=== PATIENT | female | born 1970 | race Two or more races ===

== ENCOUNTER → 2016-05-10 | Outpatient (REF) | payer OTHER ==
[~2016-05-10] MED LIST: ACET50TA PO; COLA100C PO; IBUP-1114 PO; IRON18TA PO; PRENTAB9 PO
[2016-05-10 11:53] LABS: MEAN CORPUSCULAR HEMOGLOBIN 30.2 pg (27.0-33.0); MEAN CORPUSCULAR HGB CONC 33.5 g/dl (32.0-36.5); MEAN CORPUSCULAR VOLUME 90.2 fl (80.0-96.0); RED CELL DISTRIBUTION WIDTH 12.4 % (11.5-14.5); WHITE BLOOD COUNT 5.1 K/mm3 (4.0-10.0)
[2016-05-10 12:13] LABS: ALBUMIN 4.2 GM/DL (3.2-5.2); ALKALINE PHOSPHATASE 83 U/L (45-117); ALT/SGPT 45 U/L (12-78); ANION GAP 9 MEQ/L (8-16); AST/SGOT 27 U/L (15-37); BILIRUBIN,TOTAL 0.3 MG/DL (0.2-1.0); BLOOD UREA NITROGEN 12 MG/DL (7-18); CALCIUM LEVEL 8.9 MG/DL (8.5-10.1); CARBON DIOXIDE LEVEL 27 MEQ/L (21-32); CHLORIDE LEVEL 103 MEQ/L (98-107); CREATININE FOR GFR 0.83 MG/DL (0.55-1.02); FERRITIN 18 NG/ML (8-252); GLOMERULAR FILTRATION RATE > 60.0 (>58); GLUCOSE, FASTING 91 MG/DL (70-105); POTASSIUM SERUM 4.7 MEQ/L (3.5-5.1); SODIUM LEVEL 139 MEQ/L (136-145); TOTAL PROTEIN 7.2 GM/DL (6.4-8.2)
== END ==
LOC: M SFHCLERA 08:26
PROVIDERS: ATTEND Family Medicine
DX: Z83.49 Family history of other endocrine, nutritional and metabolic diseases (principal); R53.83 Other fatigue
CPT/HCPCS: 80053; 82728; 83540; 84439; 84443; 85027; G0463

== ENCOUNTER → 2016-06-20 | Outpatient (CLI) | payer OTHER ==
[~2016-06-20] MED LIST changes: -COLA100C PO; +COLA100C3 PO
--- NOTE | 2016-06-21 09:26 | REPMRS ---
Patient History The patient states she had a clinical breast exam in October 2015.Patient had first child at age 32. No known family history of cancer. Digital Mammo Screening Bilat: June 20, 2016 - Exam #: [id number] Bilateral CC and MLO view(s) were taken. Technologist: Tanja Samuels, Technologist No prior studies available for comparison. FINDINGS: The breast tissue is heterogeneously dense. This may lower the sensitivity of mammography. There is no evidence of cancer on this mammogram. ASSESSMENT: BI-RADS/ACR category 2 mammogram. Benign finding(s). Recommendation Routine screening mammogram of both breasts in 1 year (for women over age 40). This mammogram was interpreted with the aid of an FDA-approved computer-aided dectection system. Electronically Signed By: Francisco Bui MD 06/21/16 0931
== END ==
LOC: M RAD 16:13
PROVIDERS: ATTEND Family Medicine
DX: Z12.31 Encounter for screening mammogram for malignant neoplasm of breast (principal); R92.8 Other abnormal and inconclusive findings on diagnostic imaging of breast

== ENCOUNTER → 2016-07-05 | Outpatient (REF) | payer OTHER | LOC: M SFHCLERA 07:54 | PROVIDERS: ATTEND Family Medicine | DX: Z83.49 Family history of other endocrine, nutritional and metabolic diseases (principal) | CPT/HCPCS: 84481; G0463 ==

== ENCOUNTER → 2017-03-23 | Outpatient (REF) | payer OTHER ==
[2017-03-23 12:12] LABS: HEMATOCRIT 45.2 % (36.0-47.0); HEMOGLOBIN 14.8 g/dl (12.0-16.0); MEAN CORPUSCULAR HEMOGLOBIN 29.2 pg (27.0-33.0); MEAN CORPUSCULAR HGB CONC 32.7 g/dl (32.0-36.5); MEAN CORPUSCULAR VOLUME 89.2 fl (80.0-96.0); PLATELET COUNT, AUTOMATED 291 10^3/uL (150-450); RED BLOOD COUNT 5.07 10^6/uL (4.00-5.40); RED CELL DISTRIBUTION WIDTH 12.9 % (11.5-14.5); WHITE BLOOD COUNT 6.3 10^3/uL (4.0-10.0)
[2017-03-23 12:46] LABS: VITAMIN B12 LEVEL 1546 PG/ML (247-911)
[2017-03-23 13:03] LABS: ANION GAP 8 MEQ/L (8-16); BLOOD UREA NITROGEN 13 MG/DL (7-18); CALCIUM LEVEL 9.5 MG/DL (8.5-10.1); CARBON DIOXIDE LEVEL 31 MEQ/L (21-32); CHLORIDE LEVEL 100 MEQ/L (98-107); CREATININE FOR GFR 0.78 MG/DL (0.55-1.30); FERRITIN 10 NG/ML (8-252); FREE T4 0.84 NG/DL (0.76-1.46); GLOMERULAR FILTRATION RATE > 60.0 (>58); GLUCOSE, FASTING 89 MG/DL (70-100); IRON (FE) 82 UG/DL (50-170); PERCENT SATURATION 18.1 % (13.2-45.0); POTASSIUM SERUM 4.6 MEQ/L (3.5-5.1); SODIUM LEVEL 139 MEQ/L (136-145); TOTAL IRON BINDING CAPACITY 453 UG/DL (250-450)
== END ==
LOC: M SFHCLERA 09:24
DX: R53.83 Other fatigue (principal)
CPT/HCPCS: 83550

== ENCOUNTER → 2017-05-30 | Outpatient (CLI) | payer OTHER | LOC: M LRY 10:46 | DX: R05 Cough (principal); R91.8 Other nonspecific abnormal finding of lung field | CPT/HCPCS: 94640 ==

== ENCOUNTER → 2018-02-26 | Outpatient (CLI) | payer OTHER ==
[~2018-02-26] MED LIST changes: -ACET50TA PO; -COLA100C3 PO; +COLA100C5 PO; +MAPA500T2 PO
--- NOTE | 2018-02-26 18:40 | REPMRS ---
Patient History The patient states she has not had a clinical breast exam in over a year. No known family history of cancer. 2D ONLY Digital Mammo Screening Bilat: February 26, 2018 - Exam #: [id number] Bilateral CC and MLO view(s) were taken. Technologist: Tanja Samuels, Technologist Prior study comparison: June 20, 2016, bilateral digital mammo screening bilat performed at [facility]. April 16, 2013, bilateral digital woman screen mammo, performed at [facility]. November 12, 2010, bilateral digital woman screen mammo, performed at [facility]. FINDINGS: The breast tissue is heterogeneously dense. This may lower the sensitivity of mammography. There is a moderate amount of heterogeneously dense fibroglandular tissue which is fairly symmetric. There is no interval development of dominant mass, architectural distortion, or clustered microcalcification typical of malignancy. There has been no change in the appearance of the mammogram from the prior studies. 3-D tomosynthesis shows no additional findings. Assessment: BI-RADS/ACR category 1 mammogram. Negative. Recommendation Routine screening mammogram of both breasts in 1 year (for women over age 40). This patient's Lifetime Breast Cancer RIsk is estimated at 13.7 %. This mammogram was interpreted with the aid of an FDA-approved computer-aided dectection system. Electronically Signed By: Kam Amaral MD 02/26/18 1601
== END ==
LOC: M RAD 16:35
PROVIDERS: ATTEND Family Medicine
DX: Z12.31 Encounter for screening mammogram for malignant neoplasm of breast (principal)

== ENCOUNTER → 2018-03-06 | Outpatient (REF) | payer OTHER ==
[2018-03-08 14:54] LABS: HPV HYBRID CAPTURE II Negative (Negative)
== END ==
LOC: M LAB REF 17:53
PROVIDERS: ATTEND Advanced Practice Midwife
DX: Z12.4 Encounter for screening for malignant neoplasm of cervix (principal)

== ENCOUNTER → 2018-03-09 | Outpatient (CLI) | payer OTHER ==
[2018-03-09 15:09] LABS: HEMATOCRIT 40.5 % (36.0-47.0); HEMOGLOBIN 13.5 g/dl (12.0-15.5); MEAN CORPUSCULAR HEMOGLOBIN 29.7 pg (27.0-33.0); MEAN CORPUSCULAR HGB CONC 33.3 g/dl (32.0-36.5); PLATELET COUNT, AUTOMATED 294 10^3/uL (150-450); RED BLOOD COUNT 4.55 10^6/uL (4.00-5.40); WHITE BLOOD COUNT 5.8 10^3/uL (4.0-10.0)
[2018-03-09 15:42] LABS: FREE T4 0.83 NG/DL (0.76-1.46); THYROID STIMULATING HORMONE 1.29 uIU/ML (0.358-3.740)
[2018-03-09 15:44] LABS: FOLLICLE STIMULATING HORMONE 46.7 mIU/mL; LUTEINIZING HORMONE 32.5 mIU/mL
== END ==
LOC: M LAB 14:30
PROVIDERS: ATTEND Advanced Practice Midwife
DX: N92.4 Excessive bleeding in the premenopausal period (principal)

== ENCOUNTER → 2018-03-14 | Outpatient (CLI) | payer OTHER ==
--- NOTE | 2018-03-14 21:23 | REP ---
Clinical: Follow-up pneumonia . Comparison: 05/30/2017 . Technique: PA and lateral. Findings: The mediastinum and cardiac silhouette are normal. The lung turner are clear and without acute consolidation, effusion, or pneumothorax. The skeletal structures are intact and normal. Impression: 1. No acute cardiopulmonary process. Previous right lower lobe pneumonia has resolved. Electronically Signed by Mike Del Rio MD 03/14/2018 09:14 P
== END ==
LOC: M RAD 18:05
PROVIDERS: ATTEND Family Medicine
DX: R93.89 Abnormal findings on diagnostic imaging of other specified body structures (principal)

== ENCOUNTER → 2018-03-14 | Outpatient (CLI) | payer OTHER ==
--- NOTE | 2018-03-14 22:46 | REP ---
Clinical: Pelvic pain and irregular menstrual cycles . Technique: Transabdominal pelvic ultrasound followed by transvaginal examination for better evaluation of the endometrium and adnexa. Findings: Bladder is unremarkable and measures approximately 10.8 x 6.1 x 9.4 cm . Normal anteverted uterus measures 6.4 x 3.9 x 4.6 cm . The endometrial complex measures 6.3 mm thickness. No discrete uterine or endometrial abnormalities are appreciated. IUD identified in satisfactory position. Bilateral ovaries are normal in appearance. Right ovary measures 2.8 x 1.3 x 2.1 cm with 1.2 cm dominant follicle ; Left ovary measures 2.4 x 0.8 x 1.4 cm. No pelvic fluid or adnexal mass lesion . Impression: 1. Normal pelvic ultrasound. IUD in satisfactory position. Electronically Signed by Mike Del Rio MD 03/14/2018 10:38 P
== END ==
LOC: M RAD 16:05
PROVIDERS: ATTEND Advanced Practice Midwife
DX: N92.4 Excessive bleeding in the premenopausal period (principal)

== ENCOUNTER → 2018-03-28 | Outpatient (REF) | payer OTHER | LOC: M LAB REF 17:22 | PROVIDERS: ATTEND Obstetrics & Gynecology | DX: N92.4 Excessive bleeding in the premenopausal period (principal) ==

== ENCOUNTER → 2018-05-07 | Outpatient (REF) | payer OTHER ==
[2018-05-07 20:23] LABS: BASO % 0.4 % (0.0-1.0); EOS % 0.2 % (0.0-3.0); HEMATOCRIT 41.7 % (36.0-47.0); HEMOGLOBIN 13.3 g/dl (12.0-15.5); LYMPH # 1.9 10^3/uL (1.5-4.5); LYMPH % 19.3 % (24.0-44.0); MEAN CORPUSCULAR HEMOGLOBIN 28.9 pg (27.0-33.0); MEAN CORPUSCULAR HGB CONC 31.9 g/dl (32.0-36.5); MEAN CORPUSCULAR VOLUME 90.7 fl (80.0-96.0); MONO # 0.6 10^3/uL (0.0-0.8); MONO % 5.8 % (0.0-5.0); NEUTROPHILS # 7.3 10^3/uL (1.8-7.7); NEUTROPHILS % 74.1 % (36.0-66.0); PLATELET COUNT, AUTOMATED 338 10^3/uL (150-450); WHITE BLOOD COUNT 9.8 10^3/uL (4.0-10.0)
[2018-05-07 20:36] LABS: ALBUMIN 4.2 GM/DL (3.2-5.2); ALT/SGPT 20 U/L (12-78); BILIRUBIN,TOTAL 0.3 MG/DL (0.2-1.0); BLOOD UREA NITROGEN 10 MG/DL (7-18); CALCIUM LEVEL 8.8 MG/DL (8.5-10.1); CARBON DIOXIDE LEVEL 28 MEQ/L (21-32); CHLORIDE LEVEL 106 MEQ/L (98-107); CREATININE FOR GFR 0.67 MG/DL (0.55-1.30); FERRITIN 8 NG/ML (8-252); GLOMERULAR FILTRATION RATE > 60.0 (>58); GLUCOSE, FASTING 90 MG/DL (70-100); IRON (FE) 50 UG/DL (50-170); PERCENT SATURATION 11.4 % (13.2-45.0); POTASSIUM SERUM 4.4 MEQ/L (3.5-5.1); SODIUM LEVEL 141 MEQ/L (136-145); TOTAL IRON BINDING CAPACITY 440 UG/DL (250-450); TOTAL PROTEIN 7.6 GM/DL (6.4-8.2)
[2018-05-07 20:38] LABS: VITAMIN B12 LEVEL 715 PG/ML (247-911)
[2018-05-09 15:14] LABS: Lyme Disease IgG/IgM Antibodie <0.91 ISR (0.00-0.90); Lyme Disease IgM Ab Quantitati <0.80 index (0.00-0.79)
== END ==
LOC: M SFHCLERA 16:03
PROVIDERS: ATTEND Family Medicine
DX: R53.82 Chronic fatigue, unspecified (principal)
CPT/HCPCS: 80053; 82607; 82728; 83550; 84439; 84443; 85025; 86617; G0463

== ENCOUNTER → 2018-05-25 | Outpatient (CLI) | payer OTHER | LOC: M LRY 09:02 | PROVIDERS: ATTEND Internal Medicine Endocrinology, Diabetes & Metabolism | DX: R63.5 Abnormal weight gain (principal) ==